=== PATIENT | male | born 1945 | race Caucasian/White ===

== ENCOUNTER 2023-10-15 17:10 | Emergency (ER) | payer OTHER ==
--- NOTE | 2023-10-15 17:35 | ED Physician Documentation ---
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 He has been short of breath for about 2-3 days. He is here with his . There is no associated chest pain. He has no history of heart problems. He has been compliant with his Xarelto. His had put her smart watch on him and it did flag for atrial fibrillation which he has no history of. PD PAST MEDICAL HISTORY - Past Medical History Past Medical History: Yes Cardiovascular: Hypertension, High cholesterol, Atrial fibrillation Neuro: None Endocrine/Autoimmune: Type 2 diabetes HEENT: None - Allergies Allergies/Adverse Reactions: Allergies Allergy/AdvReac Type Severity Reaction Status Date / Time No Known Drug Allergies Allergy Verified 10/15/23 17:14 - Social History Does the pt smoke?: No Smoking Status: Never smoker Does the pt drink ETOH?: No Does the pt have substance abuse?: No - Immunizations Immunizations are current?: Yes PD ED PE NORMAL - Vitals Vital signs reviewed: Yes - General General: Alert and oriented X 3, No acute distress - HEENT HEENT: PERRL, EOMI - Neck Neck: Supple, no meningeal sign, No bony TTP - Cardiac Cardiac: Other (Irregularly irregular without murmur) - Respiratory Respiratory: Other (Mild tachypnea, diminished at the right base) - Abdomen Abdomen: Non tender - Back Back: No CVA TTP, No spinal TTP - Derm Derm: Normal color, Warm and dry - Extremities Extremities: Other (Mild left leg swelling which is chronic per .) - Neuro Neuro: Alert and oriented X 3 (Hard of hearing) Results - Vitals Vitals: Vital Signs - 24 hr 10/15/23 17:14 Temperature 36.8 C Heart Rate 81 Respiratory 24 Rate Blood Pressure 160/100 H O2 Saturation 96 Oxygen O2 Source Room air - EKG (time done) 1743 EKG releavant findings:: EKG personally interpreted by author of this note. Relevant findings are: Rate: Rate (enter#) (92) Rhythm: Atrial fibrillation [place]: RAD QRS: Normal Ischemia: Non specific changes. No: ST elevation c/w ischemia - Labs Labs: Laboratory Tests 10/15/23 10/15/23 10/15/23 17:33 17:33 17:33 WBC 6.9 RBC 4.88 Hgb 14.9 Hct 45.6 MCV 93.4 MCH 30.5 MCHC 32.7 RDW 13.3 Plt Count 167 MPV 9.4 Neut # (Auto) 4.3 Lymph # (Auto) 1.8 Turner # (Auto) 0.5 Eos # (Auto) 0.2 Baso # (Auto) 0.1 Absolute Nucleated RBC 0.00 Nucleated RBC % 0.0 VBG pH VBG pCO2 VBG pO2 VBG HCO3 VBG Total CO2 VBG O2 Saturation VBG Base Excess Sodium 140 Potassium 3.6 Chloride 105 Carbon Dioxide 27 Anion Gap 8.0 BUN 16 Creatinine 1.4 H Estimated GFR (MDRD) 49 L Glucose 293 H Calcium 9.4 Total Bilirubin 1.0 AST 13 ALT 17 Alkaline Phosphatase 67 Troponin I High Sens 32.2 H* B-Natriuretic Peptide Total Protein 7.3 Albumin 4.0 Globulin 3.3 Albumin/Globulin Ratio 1.2 10/15/23 10/15/23 17:33 17:41 WBC RBC Hgb Hct MCV MCH MCHC RDW Plt Count MPV Neut # (Auto) Lymph # (Auto) Turner # (Auto) Eos # (Auto) Baso # (Auto) Absolute Nucleated RBC Nucleated RBC % VBG pH 7.386 VBG pCO2 45.1 VBG pO2 33.0 VBG HCO3 26.4 VBG Total CO2 27.8 VBG O2 Saturation 62.9 VBG Base Excess 1.0 Sodium Potassium Chloride Carbon Dioxide Anion Gap BUN Creatinine Estimated GFR (MDRD) Glucose Calcium Total Bilirubin AST ALT Alkaline Phosphatase Troponin I High Sens B-Natriuretic Peptide 533 H Total Protein Albumin Globulin Albumin/Globulin Ratio PD Medical Decision Making - ED course ED course: 78-year-old gentleman presents with short of breath. He is in A-fib which is new phenomenon for him. His shortness of breath has been for a couple of days. He is chronically anticoagulated on Xarelto. is worried about PE although he has been on Xarelto for 2 years for his DVT. He does not appear significantly fluid overloaded peripherally and has relatively clear lungs on auscultation. CBC and CMP are unremarkable save hyperglycemia and he has known diabetes. His BNP is elevated and his venous blood gas is unremarkable. His troponin was mildly positive, this level would not be indicative of non- STEMI given the length of symptoms and lack of chest pain. Will consider repeating it after a time to make sure it is not actively changing. Care to overnight emergency physician at shift change pending chest radiography and CT angiography of the chest with consideration for cardioversion or diuresis depending on results. Departure - Departure Clinical Impression: Dyspnea Qualifiers: Dyspnea type: shortness of breath Qualified Code(s): R06.02 - Shortness of breath; R06.00 - Dyspnea, unspecified; R06.01 - Orthopnea Atrial fibrillation Qualifiers: Atrial fibrillation type: unspecified Qualified Code(s): I48.91 - Unspecified atrial fibrillation Condition: Stable Forms: PCP List
[2023-10-15 17:43] LABS: BASOPHILS # (AUTO) 0.1 10^3/uL (0.0-0.1); BASOPHILS % (AUTO) 0.7 %; EOSINOPHILS # (AUTO) 0.2 10^3/uL (0.0-0.7); EOSINOPHILS % (AUTO) 2.6 %; HCT - HEMATOCRIT 45.6 % (42.0-52.0); HGB - HEMOGLOBIN 14.9 g/dL (14.0-18.0); LYMPHOCYTES # (AUTO) 1.8 10^3/uL (1.5-3.5); LYMPHOCYTES % (AUTO) 26.3 %; MEAN CORPUSCULAR HEMOGLOBIN 30.5 pg (27.0-31.0); MEAN CORPUSCULAR HGB CONC 32.7 g/dL (32.0-36.0); MEAN CORPUSCULAR VOLUME 93.4 fL (80.0-94.0); MEAN PLATELET VOLUME 9.4 fL (7.4-11.4); MONOCYTES # (AUTO) 0.5 10^3/uL (0.0-1.0); MONOCYTES % (AUTO) 7.7 %; NEUTROPHILS # (AUTO) 4.3 10^3/uL (1.5-6.6); NEUTROPHILS % (AUTO) 62.6 %; PLT - PLATELET COUNT 167 10^3/uL (130-450); RED BLOOD COUNT 4.88 10^6/uL (4.70-6.10); RED CELL DISTRIBUTION WIDTH 13.3 % (12.0-15.0); WHITE BLOOD COUNT 6.9 x10^3/uL (4.8-10.8)
[2023-10-15 17:50] LABS: VBG HCO3 26.4 mmol/L (23-28); VBG OXYGEN SATURATION 62.9 % (60-80); VBG PCO2 45.1 mmHg (41-51); VBG PH 7.386 (7.31-7.41); VBG TOTAL CO2 27.8 mmol/L (24-29)
[2023-10-15 18:03] LABS: ALBUMIN/GLOBULIN RATIO 1.2 (1.0-2.2); CALCIUM 9.4 mg/dL (8.5-10.3); CREATININE 1.4 mg/dL (0.6-1.3); POTASSIUM 3.6 mmol/L (3.5-4.5); TOTAL PROTEIN 7.3 g/dL (6.4-8.9)
[2023-10-15] MEDS ORDERED: iohexoL-300 100 ML VIAL ONE (19:16)
[2023-10-15] MEDS: METOPROLOL 5 MG/5 ML VIAL IVP STA (20:37)
--- NOTE | 2023-10-15 21:11 | ED Physician Documentation ---
ED Addendum - Addendum Addendum: 10/15/23 23:01 I received signout from Dr. Emery; please see his note for complete H&P. In brief, patient presents with chief complaint of 2 to 3 days of shortness of breath, NOBLE. He has no pulmonary diagnoses (such as emphysema, asthma) no history of atrial fibrillation nor CHF. He is found to be in atrial fibrillation on tonight's evaluation. He has not had any significant tachycardia nor hypoxia. He has mildly elevated high-sensitivity troponin (32) with a 3-hour repeat of 39 (representing an insignificant delta). Patient's prescribed medications include Xarelto and patient indicates he has been taking this exactly as prescribed including a dose earlier today. He alvaro es chest pain. He is on the Xarelto for treatment of DVT; indicates to me that the diagnosis was approximately 2 years ago. He has an elevated BNP (533), and chest x-ray and subsequent CT of the chest both demonstrate significant bilateral pulmonary edema and bilateral pulmonary effusions. No evidence of PE on CTA chest. On my shift, I ordered 40 mg IV Lasix for diuresis. I discussed the results of the chest x-ray and CT chest with patient/spouse (in ED at bedside). Consistent with the information Dr. Emery ascertained on his H&P (as signed out to me), both the patient and his are confirming to me that atrial fibrillation is a new diagnosis for the patient as well as pulmonary edema/CHF (I explained these diagnoses in lay-person terms). Although patient is appropriately anticoagulated (Xarelto) and rate control has not been an issue during ED stay, I am recommending electrocardioversion to the patient as the new-onset atrial fibrillation is a likely etiology of the pulmonary edema/effusions. I explained the risks and benefits of this procedure to the patient and his . The patient is agreeable to this procedure and thus conscious sedation followed by electrocardioversion is undertaken. 10/15/23 23:53 Unfortunately, electrocardioversion was unsuccessful despite 3 attempts (see procedure note). There has been ongoing difficulty getting a good/reliable and correlating pleth on the monitor regarding patient's pulse ox, but I was in the room on 2 separate occasions where there was a good and reliable (correlating) pleth; both of these occasions, the pulse ox was in the upper 80s (88-89%) on room air. Given the hypoxia in the setting of new-onset atrial fibrillation as well as new-onset of pulmonary edema (likely CHF), patient would benefit from inpatient treatment/monitoring/testing. While there are no beds available at [facility] at this time, admitting to [facility] would be problematic anyway, as patient would likely benefit from echocardiography which is not available until Wednesday at [facility]. I discussed this with patient and his and they are agreeable to the idea of transfer to another appropriate facility. I subsequently was informed that this patient has [place] insurance. I was subsequently contacted by Dr. Concepcion (on-call hospitalist for [facility]) who accepts patient to [facility] 10/16/23 04:14 Procedures - Procedural sedation Sedation prep: Informed consent, Time out completed, Last meal (approximately noon (nearly 11 hours prior to this procedure)), PE performed, ASA 2 - mild disease, IV O2 monitor, ET CO2 monitor, RT present Sedation Medications: propofol Mallampati classification: III Patient status during sedation: Unresponsive, Vitals remained stable, Maintained airway, Recovered uneventfully Sedation recovery: Recovered uneventfully, Back to baseline Time in sedation (Minutes): 20 - Cardioversion - Major 1 Indication: Other (new onset atrial fibrillation causing pulmonary edema/CHF) Risks, benefits, alternatives explained to: Pt Prep: IV, O2, ekg monitor tech, Pulse ox, Airway equip Meds: Morphine CS via: Pads, Anterolateral Sync: Biphasic, 100j Post cardioversion rhythm: A-fib Complications: Other (nonse) Performed by: BELLE LIZARRAGA 2 Indication: Other (new onset atrial fibrillation causing pulmonary edema/CHF) Prep: IV, O2, ekg monitor tech, Pulse ox, Airway equip CS via: Pads, Anterolateral Sync: 150j Post cardioversion rhythm: A-fib Complications: Other (none) Performed by: BELLE LIZARRAGA 3 Indication: Other (new onset atrial fibrillation causing pulmonary edema/CHF) Prep: IV, O2, ekg monitor tech, Pulse ox, Airway equip CS via: Pads, Anterolateral Sync: 200j Post cardioversion rhythm: A-fib Complications: Other (none) Performed by: BELLE LIZARRAGA
[2023-10-15] MEDS: FUROSEMIDE 40 MG/4 ML VIAL IVP STA (21:27)
--- NOTE | 2023-10-15 21:35 | XRAY Report ---
PROCEDURE: Chest 1V INDICATIONS: dyspnea TECHNIQUE: One view of the chest was acquired. COMPARISON: None. FINDINGS: Surgical changes and devices: None. Lungs and pleura: Perihilar opacities, diffuse interstitial opacities, peribronchial cuffing. Small to moderate pleural effusions. Mediastinum: Mediastinal contours appear normal. Heart size is enlarged. Bones and chest wall: No suspicious bony lesions. Overlying soft tissues appear unremarkable. IMPRESSION: Moderate pulmonary edema. Small to moderate pleural effusions. Reviewed by: Bairon Leong MD on 10/15/2023 9:34 PM PDT Approved by: Bairon Leong MD on 10/15/2023 9:34 PM PDT Station ID: [id number]
[2023-10-15] MEDS: iohexoL-300 100 ML VIAL IVP ONE (22:12)
--- NOTE | 2023-10-15 22:22 | CT Report ---
PROCEDURE: Angio Chest INDICATIONS: dyspnea, pe protocol CONTRAST: 100 ml omni 300 TECHNIQUE: After the administration of intravenous contrast, 2 mm axial images were acquired from the pulmonary apices to the posterior costophrenic angles during the arterial phase. In addition, 1 mm lung kernel and 5 mm soft tissue kernel reconstructions were performed. 3-dimensional coronal oblique maximum int ensity projection (MIP) reformats, 8 mm axial MIP, and 5 mm coronal and sagittal MPR reformats were t hen performed through the thorax. For radiation dose reduction, the following was used: automated exp osure control, adjustment of mA and/or kV according to patient size. COMPARISON: Same date x-ray. FINDINGS: Image quality: Severely suboptimal evaluation due to motion artifact. Large vessels: No filling defects within the opacified pulmonary arteries (to the distal lobar level) , accounting for motion and contrast timing. No evidence of acute aortic syndrome or aortic aneurysm. Lungs and pleura: No consolidation. Moderate pleural effusions. Perihilar groundglass. Smooth interst itial thickening and peribronchial thickening. Mediastinum: Heart size is enlarged., With moderate coronary artery calcifications. No pericardial ef fusion. No large vessel abnormality. No mediastinal adenopathy by size criteria. Chest wall and lower neck: Thyroid is unremarkable. No axillary or supraclavicular adenopathy by size . Bones: No aggressive osseous abnormality. Upper Abdomen: Calcified splenic granuloma. IMPRESSION: No pulmonary embolus to the distal station, accounting for motion artifact.. Moderate pulmonary edema. Moderate pleural effusions. Reviewed by: Bairon Leong MD on 10/15/2023 10:21 PM PDT Approved by: Bairon Leong MD on 10/15/2023 10:21 PM PDT Station ID: [id number]
[2023-10-15] MEDS: PROPOFOL 200 MG/20 ML VIAL IVP STA (23:16)
[2023-10-15] MEDS: MORPHINE 2 MG/ML CARPUJECT IVP STA (23:16)
[2023-10-16 04:22] VITALS: BP 142/99; O2SAT 95
--- NOTE | 2023-10-16 05:49 | ED Physician Documentation ---
ED Addendum - Addendum Addendum: 10/16/23 05:48 ADDENDUM TO PROCEDURE NOTE (CONSCIOUS SEDATION): PROPOFOL GIVEN FOLLOWS: 20MG IVP FOLLOWED BY 20MG IVP FOR TOTAL OF 40MG IV. DOSES WERE GIVEN BY ED MD
== END 2023-10-16 05:35 | disposition short-term general hospital (02) ==
LOC: ED 17:10
DX: I48.91 Unspecified atrial fibrillation (principal); J81.1 Chronic pulmonary edema; J90 Pleural effusion, not elsewhere classified; I50.1 Left ventricular failure, unspecified; Z79.01 Long term (current) use of anticoagulants
CPT/HCPCS: 36415; 71045; 71275; 80053; 82803; 83880; 84484; 85025; 87635; 92960; 93005; 96374; 96375; 99152; 99284; 99285; Q9967